=== PATIENT | female | born 1970 | race Asian ===

== ENCOUNTER 2019-02-09 22:22 | Emergency (ER) | payer MEDICAID ==
[~2019-02-09] VITALS: Ht 162.6 cm; Wt 61.2 kg
[2019-02-09 22:54] VITALS: BP_SYST 96
--- NOTE | 2019-02-10 00:06 | NUR ---
Patient to ER bed 01 to gown for evaluation. Side rails up.
--- NOTE | 2019-02-10 00:15 | NUR ---
Patient AOx4, ambulatory, presents to ER with complaint of intermittent persistent productive cough, fever, throat irritation, pruritus to bilateral ears. Patient states she is currently medicating with promethazine, azithromycin, and albuterol but was ineffective.
--- NOTE | 2019-02-10 01:46 | NUR ---
ER Dr. Perkins at bedside examining patient.
[2019-02-10] MEDS ORDERED: guaiFENesin 200 MG/CODEINE 20 MG/ 10 ML UDC PO ONE (02:00)
--- NOTE | 2019-02-10 02:07 | NUR ---
Xray at bedside. Pt tolerated well.
[2019-02-10 02:33] LABS: BASOPHILS % (AUTO) 0.3 % (0.0-2.0); EOSINOPHILS # (AUTO) 0.1 K/uL (0.0-0.4); EOSINOPHILS % (AUTO) 1.7 % (0.0-4.0); HEMATOCRIT 39.8 % (36-48); HEMOGLOBIN 13.5 g/dL (12.0-16.0); LYMPHOCYTES # (AUTO) 2.8 K/uL (1.0-5.5); LYMPHOCYTES % (AUTO) 40.8 % (20.5-51.5); MEAN CORPUSCULAR HEMOGLOBIN 31 pg (27-31); MEAN CORPUSCULAR HGB CONC 34 % (32-36); MEAN CORPUSCULAR VOLUME 92 fL (79.0-98.0); MONOCYTES # (AUTO) 0.5 K/uL (0.0-1.0); MONOCYTES % (AUTO) 7.4 % (1.7-9.3); NEUTROPHILS # (AUTO) 3.4 K/uL (1.8-7.7); NEUTROPHILS % (AUTO) 49.8 % (40.0-70.0); PLATELET COUNT (AUTO) 222 K/uL (130-430); RED BLOOD CELL COUNT(AUTO) 4.32 MIL/uL (4.2-6.2); RED CELL DISTRIBUTION WIDTH 12.1 % (9.0-15.0); WHITE BLOOD COUNT (AUTO) 6.8 K/uL (4.8-10.8)
--- NOTE | 2019-02-10 02:37 | NUR ---
ER Dr. Perkins at bedside explaining results to patient.
[2019-02-10 02:56] VITALS: BP_SYST 104
--- NOTE | 2019-02-10 02:56 | NUR ---
Patient given written and verbal discharge instructions and verbalizes understanding. ER MD discussed with patient the results and treatment provided. Patient in stable condition. ID arm band removed. Rx of Cheratussin AC given. Patient educated on pain management and to follow up with PMD. Pain Scale 0/10. Opportunity for questions provided and answered. Medication side effect fact sheet provided.
== END 2019-02-10 02:56 | disposition home or self-care (01) ==
LOC: SED 22:22
DX: J20.9 Acute bronchitis, unspecified (principal); Z88.0 Allergy status to penicillin
CPT/HCPCS: 36415; 71045; 85025; 99284

== ENCOUNTER 2023-10-17 17:28 | Emergency (ER) | payer MEDICAID ==
[~2023-10-17] VITALS: Ht 172.7 cm; Wt 61.2 kg
[2023-10-17 17:32] VITALS: BP_SYST 97; PULSE 62; RESP 18; TEMP 97.6; O2SAT 100
[2023-10-17] MEDS: IBUPROFEN 600 MG TABLET PO ONE (18:41)
[2023-10-17] MEDS: KETOROLAC TROMETHAMINE 60 MG/2 ML VIAL IM ONE (18:42)
[2023-10-17] MEDS ORDERED: DICL20GE TP (19:48)
[2023-10-17] MEDS ORDERED: DICL50TA9 PO (19:48)
[2023-10-17 20:10] VITALS: BP_SYST 105; PULSE 65; RESP 16; TEMP 98.1; O2SAT 97
== END 2023-10-17 20:10 | disposition home or self-care (01) ==
LOC: SED 17:28
DX: S82.001A Unspecified fracture of right patella, initial encounter for closed fracture (principal); Z88.0 Allergy status to penicillin; X58.XXXA Exposure to other specified factors, initial encounter; Y93.89 Activity, other specified; Y92.89 Other specified places as the place of occurrence of the external cause; Y99.8 Other external cause status
CPT/HCPCS: 99283; 73564; 96372; J1885